=== PATIENT | female | born 1955 | race Caucasian/White ===

== ENCOUNTER 2021-04-12 01:11 | Emergency (ER) | payer OTHER, MEDICARE, BC ==
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
[2021-04-12] MEDS ORDERED: Sodium Chloride 0.9% 10 ML Syringe FLUSH PRN (01:45)
[2021-04-12] MEDS ORDERED: Sodium Chloride 0.9% 1,000 ML IV ONE (01:45)
[2021-04-12] MEDS ORDERED: HYDROmorphone 1 MG/ML Syringe IVPUSH ONE (01:56)
[2021-04-12] MEDS ORDERED: Ondansetron 4 MG/2 ML SDV IVPUSH ONE ×2 (01:56→04:20)
[2021-04-12] MEDS: Lidocaine 1% 20 ML MDV ONE ×2 (02:08→03:01)
[2021-04-12] MEDS ORDERED: Glycopyrrolate 0.2 MG/ML SDV IVPUSH ONE (02:30)
[2021-04-12] MEDS: LORazepam 2 MG/ML SDV ONE (02:57)
[2021-04-12] MEDS ORDERED: LORazepam 2 MG/ML SDV IVPUSH ONE (02:57)
[2021-04-12] MEDS: Midazolam 1 MG/ML 2 ML SDV IVPUSH ONE (02:59)
[2021-04-12] MEDS: Midazolam 1 MG/ML 2 ML SDV ONE (02:59)
[2021-04-12] MEDS: Ketamine 200 MG/20 ML MDV ONE (03:00)
[2021-04-12] MEDS: Ketamine 200 MG/20 ML MDV IVPUSH ONE (03:00)
[2021-04-12] MEDS ORDERED: Lidocaine 1% 20 ML MDV INJECT ONE (03:01)
--- NOTE | 2021-04-12 08:13 | CT ---
[id number] CT/CT Head WO IV EXAM: CT Head WO IV CLINICAL DATA: PAIN COMPARISON STUDY: None FINDINGS: No intracranial hemorrhage, extra-axial fluid collection, mass, or acute ischemia. Generalized parenchymal atrophy with scattered areas of nonspecific white matter disease, commonly seen as sequela of chronic microvascular ischemia. Frontal scalp hematoma with associated punctate hyperdensities may represent small foreign bodies. No underlying calvarial fracture.. Paranasal sinuses and mastoid air cells are clear. IMPRESSION: No acute intracranial findings. Ayo Mario DO 04/12/21 0812 Thank you for allowing us to participate in the care of your patient.
--- NOTE | 2021-04-12 08:25 | CR ---
[id number] RAD/RAD Shoulder Right 2V Min EXAM: 4 VIEWS RIGHT SHOULDER. INDICATION: POST REDUCTION COMPARISON: Earlier today. DISCUSSION: Postreduction imaging demonstrates anatomic alignment of the right glenohumeral joint. There is linear lucency along the anterior glenoid suggestive of fracture. IMPRESSION: 1. As above. Ayo Mario DO 04/12/21 0824 Thank you for allowing us to participate in the care of your patient.
--- NOTE | 2021-04-12 08:27 | CR ---
[id number] RAD/RAD Shoulder Right 2V Min EXAM: 3 VIEWS RIGHT SHOULDER. INDICATION: PAIN COMPARISON: None. DISCUSSION: Acute anterior inferior dislocation of the right glenohumeral joint. Suspect right glenoid fracture. IMPRESSION: 1. As above. Ayo Mario DO 04/12/21 0893 Thank you for allowing us to participate in the care of your patient.
[2021-04-13] MEDS: LORazepam 2 MG/ML SDV ONE (10:04)
[2021-04-13] MEDS: Midazolam 1 MG/ML 2 ML SDV IVPUSH ONE (10:05)
[2021-04-13] MEDS: Lidocaine 1% 20 ML MDV ONE (10:05)
[2021-04-13] MEDS: Midazolam 1 MG/ML 2 ML SDV ONE (10:08)
[2021-04-13] MEDS: Ketamine 200 MG/20 ML MDV ONE (10:28)
== END 2021-04-12 05:00 | disposition home or self-care (01) ==
LOC: KA.ED 01:11
DX: S42.141A Displaced fracture of glenoid cavity of scapula, right shoulder, initial encounter for closed fracture (principal); S42.151A Displaced fracture of neck of scapula, right shoulder, initial encounter for closed fracture; S43.014A Anterior dislocation of right humerus, initial encounter; S01.81XA Laceration without foreign body of other part of head, initial encounter; S81.012A Laceration without foreign body, left knee, initial encounter; Z88.8 Allergy status to other drugs, medicaments and biological substances; Z79.899 Other long term (current) drug therapy; W01.0XXA Fall on same level from slipping, tripping and stumbling without subsequent striking against object, initial encounter
CPT/HCPCS: 01620; 12002; 12013; 23650; 70450; 73030-RT; 96374; 96375; 96376; 99284; 99284-25; J1170; J2060; J2250; J2405; J3490; J7030

== ENCOUNTER 2021-04-13 14:07 | Emergency (ER) | payer OTHER, MEDICARE, BC ==
--- NOTE | 2021-04-13 14:42 | EDM.PDOC ---
ED HPI GENERAL MEDICAL PROBLEM - General Chief Complaint: Upper Extremity Injury/Pain Stated Complaint: DISLOCATED RIGHT SHOULDER Time Seen by Provider: 04/13/21 14:41 Source of Information: Reports: Patient History Limitations: Reports: No Limitations - History of Present Illness INITIAL COMMENTS - FREE TEXT/NARRATIVE: 65 YO WF PRESENTS TO ER WITH RIGHT SHOULDER PAIN AFTER LIFTING ARM ABOVE HER HEAD EARLIER TODAY. PT WAS SEEN IN ER 04/12/2021 WITH ANTERIOR SHOULDER DISLOCATION/GLENOID FRACTURE AFTER TRIP AND FALL. PT HAD DISLOCATION REDUCED WITH CONSCIOUS SEDATION AT THAT TIME. PT ALSO CONCERNED ABOUT AN EARLY SKIN INFECTION OVER HER RECENTLY SUTURED FOREHEAD LACERATION. 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: - Past Surgical History Musculoskeletal Surgical History: Reports: Other (See Below) Other Musculoskeletal Surgeries/Procedures:: B OBB Social & Family History - Tobacco Use Tobacco Use Status *Q: Never Tobacco User Second Hand Smoke Exposure: No - Caffeine Use Caffeine Use: Reports: None - Recreational Drug Use Recreational Drug Use: No Review of Systems - Review of Systems Review Of Systems: See Below Constitutional: Reports: No Symptoms Eyes: Reports: No Symptoms Ears: Reports: No Symptoms Nose: Reports: No Symptoms Mouth/Throat: Reports: No Symptoms Respiratory: Reports: No Symptoms Cardiovascular: Reports: No Symptoms GI/Abdominal: Reports: No Symptoms Genitourinary: Reports: No Symptoms Musculoskeletal: Reports: Shoulder Pain Skin: Reports: No Symptoms Neurological: Reports: No Symptoms Psychiatric: Reports: No Symptoms ED EXAM, GENERAL - Physical Exam Exam: See Below Exam Limited By: No Limitations General Appearance: Alert, WD/WN, No Apparent Distress Throat/Mouth: Normal Inspection, Normal Lips, Normal Teeth, Normal Gums, Normal Oropharynx, Normal Voice, No Airway Compromise Head: Normocephalic, Facial Tenderness Neck: Normal Inspection, Supple, Non-Tender, Full Range of Motion Respiratory/Chest: No Respiratory Distress, Lungs Clear, Normal Breath Sounds, No Accessory Muscle Use, Chest Non-Tender Cardiovascular: Normal Peripheral Pulses, Regular Rate, Rhythm, No Edema, No Gallop, No JVD, No Murmur, No Rub GI/Abdominal: Normal Bowel Sounds, Soft, Non-Tender, No Organomegaly, No Diste ntion, No Abnormal Bruit, No Mass Back Exam: Normal Inspection, Full Range of Motion, NT Extremities: Arm Pain, Limited Range of Motion (ANTERIOR SHOULDER DISLOCATION) Neurological: Alert, Oriented, CN II-XII Intact, Normal Cognition, Normal Gait, Normal Reflexes, No Motor/Sensory Deficits Psychiatric: Normal Affect, Normal Mood Skin Exam: Warm, Dry, Intact, Normal Color, No Rash ED TRAUMA EXTREMITY PROCEDURES - Joint Reduction Right Shoulder Sedation: Conscious Sedation Pre-Procedure NV Status: Normal Post-Procedure NV Status: Normal Technique: Traction/Counter Traction Number of Attempts: 2 Post-Reduction Imaging: Completely Reduced Joint Reduction Complications: No Course - Vital Signs Last Recorded V/S: Last Vital Signs Temp 97.6 F 04/13/21 14:14 Pulse 60 04/13/21 14:30 Resp 14 04/13/21 14:14 BP 153/80 H 04/13/21 14:30 Pulse Ox 94 L 04/13/21 14:30 - Orders/Labs/Meds Orders: Active Orders 24 hr Category Date Time Status Cardiac Monitoring [RC] . DIRECTED Care 04/13/21 15:07 Active Peripheral IV Care [RC] . DIRECTED Care 04/13/21 15:07 Active Vaccines to be Administered [RC] PER UNIT ROUTINE Care 04/13/21 15:07 Active Shoulder Comp Rt [CR] Stat Exams 04/13/21 15:31 Ordered Sodium Chloride 0.9% [Normal Saline] 1,000 ml Med 04/13/21 15:06 Active IV .BOLUS Sodium Chloride 0.9% [Saline Flush] Med 04/13/21 15:07 Active 10 ml FLUSH Q8HR PRN Peripheral IV Insertion Adult [OM.PC] Routine Oth 04/13/21 15:07 Ordered Medication Orders Sodium Chloride (Normal Saline) 1,000 mls @ 999 mls/hr IV .BOLUS ONE Stop: 04/13/21 16:06 Last Admin: 04/13/21 15:10 Dose: 999 mls/hr Documented by: SAEED Sodium Chloride (Sodium Chloride 0.9% 10 Ml Syringe) 10 ml FLUSH Q8HR PRN PRN Reason: keep vein open Meds: Medications Generic Name Dose Route Start Last Admin Trade Name Frealisha PRN Reason Stop Dose Admin Sodium Chloride 1,000 mls @ 999 mls/hr 04/13/21 15:06 04/13/21 15:10 Normal Saline IV 04/13/21 16:06 999 mls/hr .BOLUS ONE Administration Sodium Chloride 10 ml 04/13/21 15:07 Sodium Chloride 0.9% 10 Ml Syringe FLUSH Q8HR PRN keep vein open Discontinued Medications Generic Name Dose Route Start Last Admin Trade Name Freq PRN Reason Stop Dose Admin Diphtheria/Tetanus/Acell Pertussis 0.5 ml 04/13/21 15:06 04/13/21 15:38 Diphtheria,Pertussis(Acell),Tetanus Vaccine 0.5 Ml Syringe IM 04/13/21 15:07 0.5 ml .ONCE ONE Administration Glycopyrrolate Confirm 04/13/21 15:14 Glycopyrrolate 0.2 Mg/Ml Sdv Administered 04/13/21 15:15 Dose 0.2 mg .ROUTE .STK-MED ONE Ketamine HCl Confirm 04/13/21 15:14 Ketamine 200 Mg/20 Ml Mdv Administered 04/13/21 15:15 Dose 200 mg .ROUTE .STK-MED ONE Midazolam HCl Confirm 04/13/21 15:13 Midazolam 1 Mg/Ml 2 Ml Sdv Administered 04/13/21 15:14 Dose 4 mg .ROUTE .STK-MED ONE Mupirocin 22 gm 04/13/21 15:06 04/13/21 15:05 Mupirocin Oint 22 Gm Tube TOP 04/13/21 15:07 1 tube ONETIME ONE Administration Propofol Confirm 04/13/21 15:26 Propofol 200 Mg/20 Ml Sdv Administered 04/13/21 15:27 Dose 200 mg .ROUTE .STK-MED ONE - Radiology Interpretation Free Text/Narrative:: R SHOULDER- ANTERIOR SHOULDER DISLOCATION POST REDUCTION- REDUCED SUCCESSFULLY Departure - Departure Time of Disposition: 15:48 Disposition: Home, Self-Care 01 Condition: Good Clinical Impression: Glenoid fracture of shoulder Qualifiers: Encounter type: initial encounter Fracture type: closed Laterality: right Qualified Code(s): S42.141A - Displaced fracture of glenoid cavity of scapula, right shoulder, initial encounter for closed fracture Anterior shoulder dislocation Qualifiers: Encounter type: subsequent encounter Laterality: right Qualified Code(s): S43.014D - Anterior dislocation of right humerus, subsequent encounter - Discharge Information Instructions: Shoulder Dislocation Referrals: Adwoa Otero MD [Primary Care Provider] - Forms: ED Department Discharge Additional Instructions: 1. DISCHARGE HOME 2. DO NOT RAISE ARM ABOVE HEAD 3. CONTINUE ULTRAM 50-100MG EVERY 6 HOURS NEEDED FOR PAIN 4. MOTRIN 600MG EVERY 6 HOURS NEEDED 5. TYLENOL 1000MG EVERY 6 HOURS NEEDED 6. FOLLOW UP WITH DR BARAJAS-RUSTY SCHEDULED 7. RETURN TO ER FOR WORSENING SYMPTOMS Sepsis Event Note (ED) - Evaluation Sepsis Screening Result: No Definite Risk - Focused Exam Vital Signs: Vital Signs Temp Pulse Resp BP Pulse Ox 04/13/21 14:30 60 153/80 H 94 L 04/13/21 14:14 97.6 F 64 14 171/87 H 95 - My Orders Last 24 Hours: My Active Orders 04/13/21 15:06 Sodium Chloride 0.9% [Normal Saline] 1,000 ml IV .BOLUS 04/13/21 15:07 Cardiac Monitoring [RC] . DIRECTED Peripheral IV Care [RC] . DIRECTED Vaccines to be Administered [RC] PER UNIT ROUTINE Sodium Chloride 0.9% [Saline Flush] 10 ml FLUSH Q8HR PRN Peripheral IV Insertion Adult [OM.PC] Routine 04/13/21 15:31 Shoulder Comp Rt [CR] Stat - Assessment/Plan Last 24 Hours: My Active Orders 04/13/21 15:06 Sodium Chloride 0.9% [Normal Saline] 1,000 ml IV .BOLUS 04/13/21 15:07 Cardiac Monitoring [RC] . DIRECTED Peripheral IV Care [RC] . DIRECTED Vaccines to be Administered [RC] PER UNIT ROUTINE Sodium Chloride 0.9% [Saline Flush] 10 ml FLUSH Q8HR PRN Peripheral IV Insertion Adult [OM.PC] Routine 04/13/21 15:31 Shoulder Comp Rt [CR] Stat Assessment:: 1. RECURRENT ANTERIOR SHOULDER DISLOCATION-REDUCED Plan: 1. DISCHARGE HOME 2. DO NOT RAISE ARM ABOVE HEAD 3. CONTINUE ULTRAM 50-100MG EVERY 6 HOURS NEEDED FOR PAIN 4. MOTRIN 600MG EVERY 6 HOURS NEEDED 5. TYLENOL 1000MG EVERY 6 HOURS NEEDED 6. FOLLOW UP WITH DR BARAJAS-RUSTY SCHEDULED 7. RETURN TO ER FOR WORSENING SYMPTOMS
--- NOTE | 2021-04-13 14:57 | CR ---
[id number] RAD/RAD Shoulder Right 2V Min Exam: RAD Shoulder Right 2V Min Indication: SHOULDER INJURY. Comparison: No prior imaging for comparison. Discussion/Impression: Anterior dislocation of the humeral head in relation of the glenoid. Acromioclavicular articulation remains intact. Diallo Russell MD 04/13/21 [id number] Thank you for allowing us to participate in the care of your patient.
[2021-04-13] MEDS: Mupirocin Oint 22 GM Tube TOP ONE (15:05)
[2021-04-13] MEDS ORDERED: Sodium Chloride 0.9% 10 ML Syringe FLUSH PRN (15:07)
[2021-04-13] MEDS: Sodium Chloride 0.9% 1,000 ML IV ONE (15:10)
[2021-04-13] MEDS: Midazolam 1 MG/ML 2 ML SDV ONE (15:22)
[2021-04-13] MEDS: Glycopyrrolate 0.2 MG/ML SDV ONE (15:25)
[2021-04-13] MEDS: Ketamine 200 MG/20 ML MDV ONE (15:25)
[2021-04-13] MEDS: Propofol 200 MG/20 ML SDV ONE (15:27)
[2021-04-13] MEDS: Diphtheria,Pertussis(Acell),Tetanus Vaccine 0.5 ML Syringe IM ONE (15:38)
[2021-04-13 16:01] VITALS: BP 158/87; PULSE 66
--- NOTE | 2021-04-13 17:22 | CR ---
[id number] RAD/RAD Shoulder Right 2V Min Exam: RAD Shoulder Right 2V Min Indication:POST REDUCTION. Comparison: No prior imaging for comparison. Discussion/Impression: Successful reduction of previously seen anteriorly dislocated humerus. Diallo Russell MD 04/13/21 1008 Thank you for allowing us to participate in the care of your patient.
== END 2021-04-13 16:20 | disposition home or self-care (01) ==
LOC: KA.ED 14:07
DX: S42.141A Displaced fracture of glenoid cavity of scapula, right shoulder, initial encounter for closed fracture (principal); S43.014D Anterior dislocation of right humerus, subsequent encounter; Z88.8 Allergy status to other drugs, medicaments and biological substances; Z23 Encounter for immunization; W01.0XXA Fall on same level from slipping, tripping and stumbling without subsequent striking against object, initial encounter
CPT/HCPCS: 01620; 23650; 73030-RT; 90471; 90715; 99283; 99283-25; A9270-GY; J2250; J2704; J3490; J7030

== ENCOUNTER 2022-03-26 13:50 | Emergency (ER) | payer MEDICARE ==
[2022-03-26] MEDS ORDERED: Sodium Chloride 0.9% 10 ML Syringe FLUSH PRN (14:28)
[2022-03-26 15:04] VITALS: BP 158/87
[2022-03-26 15:08] LABS: ANION GAP 11.4 mmol/L (5-15); CHLORIDE,CL 104 mmol/L (98-107); SODIUM,NA 140 mmol/L (136-145)
[2022-03-26 15:27] VITALS: PULSE 55
== END 2022-03-26 15:56 | disposition home or self-care (01) ==
LOC: KA.ED 13:50
DX: I16.0 Hypertensive urgency (principal); R07.9 Chest pain, unspecified; E78.00 Pure hypercholesterolemia, unspecified; Z79.899 Other long term (current) drug therapy
CPT/HCPCS: 36415; 70450; 71045; 80053; 84484; 85025; 93005; 93010; 99285; 99285-25